=== PATIENT | female | born 2000 | race Hispanic/Latino ===

== ENCOUNTER 2020-11-17 19:15 | Day surgery (SDC) | payer OTHER ==
[2020-11-17 19:42] VITALS: BMI 25.1
[2020-11-17] MEDS ORDERED: hydrALAZINE 20 MG/ML VIAL SLOW IVP PRN (20:02)
== END 2020-11-17 20:43 | disposition home or self-care (01) ==
LOC: CSHLD/OP 19:15
PROVIDERS: ATTEND Obstetrics & Gynecology
DX: O36.8130 Decreased fetal movements, third trimester, not applicable or unspecified (principal); O47.03 False labor before 37 completed weeks of gestation, third trimester; O99.891 Other specified diseases and conditions complicating pregnancy; R00.0 Tachycardia, unspecified; Z3A.29 29 weeks gestation of pregnancy
CPT/HCPCS: 99282

== ENCOUNTER 2020-11-27 00:16 | Day surgery (SDC) | payer OTHER ==
[2020-11-27] MEDS ORDERED: hydrALAZINE 20 MG/ML VIAL SLOW IVP PRN (00:40)
[2020-11-27 00:41] VITALS: BMI 25.0
[2020-11-27] MEDS ORDERED: Lactated Ringer's 1,000 ML IV SCH (01:00)
[2020-11-27] MEDS ORDERED: Ondansetron PF 4 MG/2 ML Vial IVP SCH (01:00)
[2020-11-27 01:46] LABS: Anion Gap 15 mmol/L (10-20); BUN (Urea Nitrogen) 6 mg/dL (7.0-18.7); Calc. Creatinine Clearance 146 mL/min (70-130); Calcium 9.6 mg/dL (7.8-10.44); Carbon Dioxide 21 mmol/L (22-29); Chloride 105 mmol/L (98-107); Glucose 84 mg/dL (70-105); Potassium 3.9 mmol/L (3.5-5.1); Sodium 137 mmol/L (136-145)
[2020-11-27 02:21] LABS: FFN Internal QC Analyzer PASS (PASS); FFN Internal QC Cassette PASS (PASS); Fetal Fibronectin Negative (Negative)
== END 2020-11-27 02:45 | disposition home or self-care (01) ==
LOC: CSHLD/OP 00:16
PROVIDERS: ATTEND Obstetrics & Gynecology
DX: O47.03 False labor before 37 completed weeks of gestation, third trimester (principal); O99.891 Other specified diseases and conditions complicating pregnancy; R19.7 Diarrhea, unspecified; R10.9 Unspecified abdominal pain; Z3A.30 30 weeks gestation of pregnancy
CPT/HCPCS: 80048; 82731; 96360; 96361; 99282

== ENCOUNTER 2020-12-06 19:40 | Day surgery (SDC) | payer OTHER ==
[2020-12-06] MEDS ORDERED: hydrALAZINE 20 MG/ML VIAL SLOW IVP PRN (20:09)
[2020-12-06 20:55] LABS: FFN Internal QC Analyzer PASS (PASS); FFN Internal QC Cassette PASS (PASS); Fetal Fibronectin Negative (Negative)
[2020-12-06 21:19] VITALS: BMI 25.0
== END 2020-12-06 21:56 | disposition home or self-care (01) ==
LOC: CSHLD/OP 19:40
PROVIDERS: ATTEND Obstetrics & Gynecology
DX: O26.893 Other specified pregnancy related conditions, third trimester (principal); R10.30 Lower abdominal pain, unspecified; R10.2 Pelvic and perineal pain; M54.9 Dorsalgia, unspecified; Z3A.32 32 weeks gestation of pregnancy
CPT/HCPCS: 76815; 82731; 99283